=== PATIENT | female | born 1955 | race Caucasian/White ===

== ENCOUNTER 2018-02-23 12:56 | Emergency (ER) | payer SELFPAY ==
[~2018-02-23] VITALS: Ht 167.6 cm; Wt 74.8 kg
--- OUTSIDE RECORDS SUMMARY | 2018-02-23 13:00 | XMS REPORT | Summary of Care ---
Author Author [facility] Organization [facility] Address Unknown Phone Unavailable Encounter HQ Radha(SAMIR) [id number] Date(s): 01/16/16 - 01/16/16 [facility] [address] [place] [address]- Discharge Diagnosis: Lower abdominal pain, unspecified Discharge Disposition: Home or Self Care Attending Physician: Juan Rebolledo MD Vital Signs 1 2 3 Most recent to oldest [Reference Range]: 167.64 cm (01/16/16 12:04 PM) Height 97.6 DegF (01/16/16 5:34 PM) 98.1 DegF (01/16/16 12:04 PM) Temperature Oral [96.4-99.1 DegF] 139/81 mmHg (01/16/16 5:34 PM) 148/70 mmHg *HI* (01/16/16 4:51 PM) 128/74 mmHg (01/16/16 3:17 PM) Blood Pressure [90-140/60-90 mmHg] 18 BRMIN (01/16/16 3:17 PM) 18 BRMIN (01/16/16 12:04 PM) Respiratory Rate [14-20 BRMIN] 60 bpm (01/16/16 5:34 PM) 58 bpm *LOW* (01/16/16 4:51 PM) 61 bpm (01/16/16 3:17 PM) Peripheral Pulse Rate [60-100 bpm] 71.818 kg (01/16/16 12:04 PM) Weight 25.56 m2 (01/16/16 12:04 PM) Body Mass Index Problem List Condition Effective Dates Status Health Status Informant Aortic Active aneurysm(Confirmed) AAA repair(Probable 09/16/10 Active Diagnosis) Atrial Active fibrillation(Confirm ed) Chest Active pain(Confirmed) Current Active smoker(Confirmed) HTN - Active Hypertension(Confirm ed) Hypertension(Confirm Resolved ed) Hypoxia( ) 09/16/10 Active Kidney Resolved stones(Confirmed) Pain(Confirmed) Active Pain following 09/16/10 Active surgery, acute( ) Pneumothorax(Confirm 09/16/10 Active ed) Pulmonary 09/22/10 Active edema(Confirmed) SOB (shortness of 09/16/10 Active breath)( ) Allergies, Adverse Reactions, Alerts Substance Reaction Severity Status NKDA Active Medications aspirin 324 mg, Route: CHEW, Drug form: CHEWTAB, ONCE, Dosing Weight 71.818, kg, Priorit y: STAT, Start date: 01/16/16 15:34:00 CDT, Stop date: 01/16/16 15:34:00 CDT Start Date: 01/16/16 Stop Date: 01/16/16 Status: Completed morphine Sulfate 4 mg, 2 mL, Route: IVP, Drug form: INJ, ONCE, Dosing Weight 71.818, kg, Priority : STAT, Start date: 01/16/16 16:12:00 CDT, Stop date: 01/16/16 16:12:00 CDT Notes: (Same as:MORPhine Sulfate) Start Date: 01/16/16 Stop Date: 01/16/16 Status: Completed morphine Sulfate 4 mg, Route: IVP, ONCE, Dosing Weight 71.818, kg, Priority: STAT, Start date: 12:28:00 CDT, Stop date: 01/16/16 12:28:00 CDT Start Date: 01/16/16 Stop Date: 01/16/16 Status: Completed Motrin 600 mg oral tablet 600 mg=1 tab, PO, Q6H, PRN Pain, take with food, # 30 tab, 0 Refill(s) Start Date: 01/16/16 Stop Date: 01/25/16 Status: Ordered [place] 10/325 oral tablet 1 tab, Route: PO, Drug Form: TAB, Dosing Weight 71.818, kg, ONCE, STAT, Start da te: 01/16/16 13:54:00 CDT, Stop date: 01/16/16 13:54:00 CDT Notes: Do not exceed 4gm/day of acetaminophen. (Same as: [place] 325/10) Start Date: 01/16/16 Stop Date: 01/16/16 Status: Completed [place] 10/325 oral tablet 1 tab, PO, Q6H, PRN for pain, X 3 day, # 11 tab, 0 Refill(s) Start Date: 01/16/16 Stop Date: 01/19/16 Status: Ordered NS (Bolus) IV 1,000 mL, 1,000 ml/hr, Infuse Over: 1 hr, Route: IV, ONCE, Priority: STAT, Rishiin g Weight 71.818 kg, Start date: 01/16/16 12:27:00 CDT, Duration: 1 doses or time s, Stop date: 01/16/16 12:27:00 CDT Start Date: 01/16/16 Stop Date: 01/16/16 Status: Completed Reglan 10 mg oral tablet 10 mg=1 tab, PO, QID, X 5 day, # 20 tab, 0 Refill(s) Start Date: 01/16/16 Stop Date: 01/21/16 Status: Ordered Tylenol with Codeine #3 oral tablet 1 tab, PO, Q6H, PRN Pain, X 3 day, # 11 tab, 0 Refill(s) Start Date: 01/16/16 Stop Date: 01/16/16 Status: Discontinued Zofran 4 mg, 2 mL, Route: IVP, Drug form: INJ, ONCE, Dosing Weight 71.818, kg, Priority : STAT, Start date: 01/16/16 16:12:00 CDT, Stop date: 01/16/16 16:12:00 CDT Notes: (Same as: Zofran) MEDICATION WASTE Product Size: 4 mgProduct Was zahida: ___ mg Start Date: 01/16/16 Stop Date: 01/16/16 Status: Completed Zofran 4 mg, Route: IVP, Drug form: INJ, ONCE, Dosing Weight 71.818, kg, Priority: STAT , Start date: 01/16/16 12:28:00 CDT, Stop date: 01/16/16 12:28:00 CDT Start Date: 01/16/16 Stop Date: 01/16/16 Status: Completed Results ELECTROLYTES Most recent to 1 2 oldest [Reference Range]: Sodium Lvl [135-145 137 mEq/L mEq/L] (01/16/16 1:02 PM) Potassium Lvl 3.3 mEq/L [3.5-5.1 mEq/L] *LOW* (01/16/16 1:02 PM) Chloride Lvl [95-109 99 mEq/L mEq/L] (01/16/16 1:02 PM) CO2 [24-32 mEq/L] 32 mEq/L (01/16/16 1:02 PM) AGAP [10.0-20.0 9.3 mEq/L mEq/L] *LOW* (01/16/16 1:02 PM) CHEM PANEL Most recent to 1 2 oldest [Reference Range]: Creatinine Lvl 0.68 mg/dL [0.50-1.40 mg/dL] (01/16/16 1:02 PM) eGFR 97 mL/min/1.73m2 1 *NA* (01/16/16 1:02 PM) BUN [7-22 mg/dL] 9 mg/dL (01/16/16 1:02 PM) B/C Ratio [6-25] 13 (01/16/16 1:02 PM) Glucose Lvl [70-99 97 mg/dL mg/dL] (01/16/16 1:02 PM) Total Protein 6.5 g/dL [6.4-8.4 g/dL] (01/16/16 1:02 PM) Albumin Lvl [3.5-5.0 3.6 g/dL g/dL] (01/16/16 1:02 PM) Globulin [2.7-4.2 2.9 g/dL g/dL] (01/16/16 1:02 PM) A/G Ratio [0.7-1.6] 1.2 (01/16/16 1:02 PM) Calcium Lvl 9.0 mg/dL [8.5-10.5 mg/dL] (01/16/16 1:02 PM) ALT [0-65 unit/L] 22 unit/L (01/16/16 1:02 PM) AST [0-37 unit/L] 11 unit/L (01/16/16 1:02 PM) Alk Phos [39-136 65 unit/L unit/L] (01/16/16 1:02 PM) Bili Total [0.2-1.3 0.2 mg/dL mg/dL] (01/16/16 1:02 PM) Lactic Acid Lvl 1.4 mMol/L [0.5-2.2 mMol/L] (01/16/16 1:02 PM) 1Result Comment: The eGFR is calculated using the CKD-EPI formula. In most young, healthy individuals the eGFR will be >90 mL/min/1.73m2. The eGFR declines with age. An eGFR of 60-89 may be normal in some populations, particularly the elderly, for whom the CKD-EPI formula has not been extensively validated. Use of the eGFR is not recommended in the following populations: Individuals with unstable creatinine concentrations, including patients and those with serious co-morbid conditions. Patients with extremes in muscle mass or diet. The data above are obtained from the National Kidney Disease Education Program ( NKDEP) which additionally recommends that when the eGFR is used in patients with extremes of body mass index for purposes of drug dosing, the eGFR should be mul tiplied by the estimated BMI. CARDIAC ENZYMES Most recent to 1 2 oldest [Reference Range]: Troponin-I <0.02 ng/mL <0.02 ng/mL [0.00-0.40 ng/mL] (01/16/16 4:48 PM) (01/16/16 1:02 PM) URINE AND STOOL Most recent to 1 2 oldest [Reference Range]: UA Turbidity [Clear] Clear Slight (01/16/16 2:25 PM) *ABN* (01/16/16 1:02 PM) UA Color Colorless *NA* (01/16/16 2:25 PM) UA Color [Yellow] Yellow *NA* (01/16/16 1:02 PM) UA pH [5.0-8.0] 6.0 5.0 (01/16/16 2:25 PM) (01/16/16 1:02 PM) UA Spec Grav 1.001 1.021 [<=1.030] (01/16/16 2:25 PM) (01/16/16 1:02 PM) UA Glucose [Negative Negative mg/dL Negative mg/dL mg/dL] *NA* *NA* (01/16/16 2:25 PM) (01/16/16 1:02 PM) UA Blood [Negative] Negative Negative (01/16/16 2:25 PM) (01/16/16 1:02 PM) UA Ketones [Negative Negative mg/dL Negative mg/dL mg/dL] *NA* *NA* (01/16/16 2:25 PM) (01/16/16 1:02 PM) UA Protein [Negative Negative mg/dL Negative mg/dL mg/dL] (01/16/16 2:25 PM) (01/16/16 1:02 PM) UA Urobilinogen <=1.0 mg/dL <=1.0 mg/dL [0.1-1.0 mg/dL] *NA* *NA* (01/16/16 2:25 PM) (01/16/16 1:02 PM) UA Bili [Negative] Negative Negative *NA* *NA* (01/16/16 2:25 PM) (01/16/16 1:02 PM) UA Leuk Est Negative Trace [Negative] (01/16/16 2:25 PM) *ABN* (01/16/16 1:02 PM) UA Nitrite Negative Negative [Negative] (01/16/16 2:25 PM) (01/16/16 1:02 PM) UA WBC [0-5 /HPF] <1 /HPF 3 /HPF (01/16/16 2:25 PM) (01/16/16 1:02 PM) UA RBC [0-2 /HPF] 4 /HPF *HI* (01/16/16 1:02 PM) UA Bacteria [None Moderate /HPF Seen /HPF] *ABN* (01/16/16 1:02 PM) UA Sq Epi None Seen *NA* (01/16/16 2:25 PM) UA Sq Epi [Few /LPF] Many /LPF *ABN* (01/16/16 1:02 PM) UA Hyal Cast [0-2 23 /LPF /LPF] *HI* (01/16/16 1:02 PM) UA Mucus [None Seen Many /LPF /LPF] *ABN* (01/16/16 1:02 PM) HEMATOLOGY Most recent to 1 2 oldest [Reference Range]: WBC [3.7-10.4 K/CMM] 8.3 K/CMM (01/16/16 1:02 PM) RBC [4.20-5.40 4.16 M/CMM M/CMM] *LOW* (01/16/16 1:02 PM) Hgb [12.0-16.0 g/dL] 12.6 g/dL (01/16/16 1:02 PM) Hct [36.0-48.0 %] 38.0 % (01/16/16 1:02 PM) MCV [80.0-98.0 fL] 91.4 fL (01/16/16 1:02 PM) MCH [27.0-31.0 pg] 30.4 pg (01/16/16 1:02 PM) MCHC [32.0-36.0 33.3 g/dL g/dL] (01/16/16 1:02 PM) RDW [11.5-14.5 %] 13.1 % (01/16/16 1:02 PM) Platelet [133-450 209 K/CMM K/CMM] (01/16/16 1:02 PM) MPV [7.4-10.4 fL] 9.4 fL (01/16/16 1:02 PM) Segs [45.0-75.0 %] 67.3 % (01/16/16 1:02 PM) Lymphocytes 24.8 % [20.0-40.0 %] (01/16/16 1:02 PM) Monocytes [2.0-12.0 5.3 % %] (01/16/16 1:02 PM) Eosinophils [0.0-4.0 2.2 % %] (01/16/16 1:02 PM) Basophils [0.0-1.0 0.4 % %] (01/16/16 1:02 PM) Segs-Bands # 5.6 K/CMM [1.5-8.1 K/CMM] (01/16/16 1:02 PM) Lymphocytes # 2.1 K/CMM [1.0-5.5 K/CMM] (01/16/16 1:02 PM) Monocytes # [0.0-0.8 0.4 K/CMM K/CMM] (01/16/16 1:02 PM) Eosinophils # 0.2 K/CMM [0.0-0.5 K/CMM] (01/16/16 1:02 PM) PT [12.0-14.7 12.9 seconds seconds] (01/16/16 2:25 PM) INR [0.85-1.17] 0.94 (01/16/16 2:25 PM) PTT [22.9-35.8 20.6 seconds seconds] *LOW* (01/16/16 2:25 PM) Immunizations No data available for this section Procedures Procedure Date Related Diagnosis Body Site Aortic aneurysm repair Discectomy1 Excision of rib Hysterectomy 1lumbar Social History Social History Type Response Smoking Status Current every day smoker; Previous treatment: None; Ready to change: No; Concerns about tobacco use in household: No; Exposure to Tobacco Smoke None; Cigarette Smoking Last 365 Days Yes; Reg Smoking Cessation Counseling No Assessment and Plan Extracted from: Title: Cardiology Consult note Author: Tadeo Rooney MD Date: 01/16/16 Impression and Plan Atypical chest pain Sinus bradycardia Abnormal ekg Abdominal pain Plan: Check one troponin. If negative, she can be discharged. I think there is a component of pain seeking. She asked who will be giving me my pain meds several times. She wants the ER physician to give her pain meds through Tuesday. After talking to her pcp, it appears she has a history of chronic pain. She can follow up with Dr Flores early next week. If the chest pain persists, she is urged to come back to the ER. Please call me with any questions.
--- OUTSIDE RECORDS SUMMARY | 2018-02-23 13:00 | XMS REPORT ---
Author Author [facility] Address Unknown Phone Unavailable Care Team Providers Care Tailman Name Role Phone PEPE JOHNSON Unavailable Unavailable Problems This patient has no known problems. Allergies, Adverse Reactions, Alerts This patient has no known allergies or adverse reactions. Medications This patient has no known medications. Results Test Description Test Time Test Comments Text Results Atomic Results Result Comments CTA CHEST [address] [address] Patient Name: THAI SCANLON MR #: [id number] : 1955 Age/Sex: 61/F Req #: [id number] Adm Physician: Ordered by: PEPE JOHNSON MD Report #: [id number] Location: CT Room/Bed: Procedure: [id number] CT/CTA CHEST Exam Date: 04/07/17 Exam Time: 1455 REPORT STATUS: Signed EXAM: CTA OF THE THORACIC AORTA INDICATION: COMPARISON: None. TECHNIQUE: Multi-detector CT technology was employed. CTA Gated axial imaging of the chest was performed after the administration of IV contrast. IV CONTRAST: 100 mL of Isovue-370 ORAL CONTRAST: None COMPLICATIONS: None RADIATION DOSE: Total DLP: 818.0 mGy*cm Estimated effective dose: (DLP x 0.015 x size factor) mSv CTDIvol has been reviewed. It is below the limits set by the Radiation Protocol Committee (RPC). For optimization of anatomic evaluation, multiplanar reconstruction, maximum intensity projections, and advanced 3-D off-line postprocessing were performed on a dedicated stand-alone workstation under the direct supervision of the interpreting physician. FINDINGS: Potential study limitations: None. LINES/ TUBES: None. VASCULAR WITH ADVANCED 3-D OFF-LINE POSTPROCESSING: Aortic valve morphology is trileaflet and contains no calcifications. 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 Status post replacement of the ascending aorta with surgical graft. The graft appears intact. The remaining thoracic aorta is normal in course, caliber, and contour. There is no acute aortic pathology, such as dissection, intramural hematoma, or contained rupture. Aortic plaques: None. The arch vessel branching pattern is conventional. All of the arch branch vessels appear widely patent in their proximal portions. Application Development Liaison dimensions of the thoracic aorta are as follows: 1.7 x 2.6 cm at the aortic annulus 4.3 x 3.9 cm at the sinuses of Valsalva (the sinotubular junction is preserved) 3.2 cm at the mid ascending aorta 3.2 cm at the distal ascending aorta 2.8 cm at the mid transverse arch 2.6 cm at the proximal descending thoracic aorta 2.5 cm at the diaphragmatic hiatus. LUNGS AND AIRWAYS: Lungs are clear. Airways are patent. PLEURA: The pleural spaces are clear.. HEART AND MEDIASTINUM: The thyroid gland is normal. Few nonspecific subcentimeter mediastinal lymph nodes. The main pulmonary artery is normal in size. The cardiac chambers demonstrate normal atrioventricular and ventriculoarterial concordance, and systemic and pulmonary venous return. The left region is mildly prominent. The remaining heart appear within normal limits. The coronary arteries have normal origins and courses. There are no distinct coronary calcifications identified, though this study was not optimized for coronary artery evaluation. There is no pericardial effusion. LIMITED ABDOMEN: Mild thickening of the left adrenal gland without discrete nodules. BONES: Median sternotomy with intact wires. Posttraumatic deformity of the posterior left 10th and 11th ribs. IMPRESSION: Ectasia of the aortic root at the sinus of Valsalva (4.3 x 3.9 cm). Status post replacement of the ascending aorta with intact surgical graft. Normal remaining thoracic aorta. No acute thoracic aorta pathology. Signed by: Dr. Margo Sepulveda M.D. on 04/07/2017 6:34 PM Dictated By: MARGO SEPULVEDA MD 33 Transcribed By: CLOTILDE on 04/07/171833 COPY TO: PEPE JOHNSON MD
--- OUTSIDE RECORDS SUMMARY | 2018-02-23 13:00 | XMS REPORT | Summary of Care ---
Author Organization Unknown Address Unknown Phone Unavailable Encounter HQ Radha(SAMIR) [id number] Date(s): 01/18/14 - 01/18/14 [facility] [address] [address] [address] - [facility] Discharge Diagnosis: Renal stones Discharge Disposition: Home Physician Attending: Siddhartha Crowe MD Reason for Visit ABD PAIN Vital Signs Most recent to 1 2 oldest [Reference Range]: Height 167.64 cm (01/18/14 2:54 PM) Temperature Oral 98.8 DegF 98.6 DegF [96.4-99.1 DegF] (01/18/14 8:07 PM) (01/18/14 2:54 PM) Systolic Blood 140 mmHg 129 mmHg Pressure [90-140 (01/18/14 8:07 PM) (01/18/14 2:54 PM) mmHg] Diastolic Blood 75 mmHg 74 mmHg Pressure [60-90 (01/18/14 8:07 PM) (01/18/14 2:54 PM) mmHg] Respiratory Rate 18 BRMIN 18 BRMIN [14-20 BRMIN] (01/18/14 8:07 PM) (01/18/14 2:54 PM) Peripheral Pulse 63 bpm 80 bpm Rate [60-100 bpm] (01/18/14 8:07 PM) (01/18/14 2:54 PM) Weight 83.182 kg (01/18/14 2:54 PM) Body Mass Index 29.6 m2 (01/18/14 2:54 PM) Problem List Condition Effective Dates Status Health Status Informant Aortic Active aneurysm(Confirmed) AAA repair(Probable 09/16/10 Active Diagnosis) Atrial Active fibrillation(Confirm ed) Chest Active pain(Confirmed) Current Active smoker(Confirmed) HTN - Active Hypertension(Confirm ed) Hypoxia( ) 09/16/10 Active Pain(Confirmed) Active Pain following 09/16/10 Active surgery, acute( ) Pneumothorax(Confirm 09/16/10 Active ed) Pulmonary 09/22/10 Active edema(Confirmed) SOB (shortness of 09/16/10 Active breath)( ) Allergies, Adverse Reactions, Alerts Substance Reaction Severity Status NKDA Active Medications Dilaudid 0.5 mg, Route: IVP, ONCE, Dosing Weight 83.182, kg, Priority: STAT, Start date: 01/18/14 17:15:00, Stop date: 01/18/14 17:15:00 Start Date: 01/18/14 Stop Date: 01/18/14 Status: Completed Dilaudid 0.5 mg, Route: IVP, ONCE, Dosing Weight 83.182, kg, Priority: STAT, Start date: 01/18/14 18:14:00, Stop date: 01/18/14 18:14:00 Start Date: 01/18/14 Stop Date: 01/18/14 Status: Completed Flexeril 10 mg oral tablet 10 mg=1 tab, PO, TID, for spasm, # 30 tab, 0 Refill(s) Start Date: 01/18/14 Status: Ordered Flomax 0.4 mg oral capsule =1 tab, PO, Daily, # 7 tab, 0 Refill(s) Start Date: 01/18/14 Stop Date: 01/25/14 Status: Ordered ketorolac 30 mg, Route: IVP, Drug form: INJ, ONCE, Dosing Weight 83.182, kg, Priority: STA T, Start date: 01/18/14 18:14:00, Stop date: 01/18/14 18:14:00 Start Date: 01/18/14 Stop Date: 01/18/14 Status: Completed [place] 7.5/325 oral tablet 1-2 tab, PO, Q4-6H, Pain, # 15 tab, 0 Refill(s) Start Date: 01/18/14 Stop Date: 01/23/14 Status: Ordered Sodium Chloride 0.9% (Bolus) IV 1,000 mL, 1,000 ml/hr, Infuse Over: 1 hr, Route: IV, ONCE, Priority: STAT, Dosin g Weight 83.182 kg, Start date: 01/18/14 17:15:00, Duration: 1 doses or times, S top date: 01/18/14 17:15:00 Start Date: 01/18/14 Stop Date: 01/18/14 Status: Completed Results ELECTROLYTES Most recent to 1 oldest [Reference Range]: Sodium Lvl [135-145 136 mEq/L mEq/L] (01/18/14 5:35 PM) Potassium Lvl 3.6 mEq/L [3.5-5.1 mEq/L] (01/18/14 5:35 PM) Chloride Lvl [95-109 100 mEq/L mEq/L] (01/18/14 5:35 PM) CO2 [24-32 mEq/L] 29 mEq/L (01/18/14 5:35 PM) AGAP [10.0-20.0 10.6 mEq/L mEq/L] (01/18/14 5:35 PM) CHEM PANEL Most recent to 1 oldest [Reference Range]: Creatinine Lvl 0.8 mg/dL [0.5-1.4 mg/dL] (01/18/14 5:35 PM) eGFR 83 mL/min/1.73m2 1 *NA* (01/18/14 5:35 PM) BUN [7-22 mg/dL] 15 mg/dL (01/18/14 5:35 PM) B/C Ratio [6-25] 19 (01/18/14 5:35 PM) Glucose Lvl [70-99 102 mg/dL 2 mg/dL] *HI* (01/18/14 5:35 PM) Total Protein 7.2 g/dL [6.4-8.4 g/dL] (01/18/14 5:35 PM) Albumin Lvl [3.5-5.0 3.9 g/dL g/dL] (01/18/14 5:35 PM) Globulin [2.0-4.0 3.3 g/dL g/dL] (01/18/14 5:35 PM) A/G Ratio [0.7-1.6] 1.2 (01/18/14 5:35 PM) Calcium Lvl 8.9 mg/dL [8.5-10.5 mg/dL] (01/18/14 5:35 PM) ALT [0-65 unit/L] 26 unit/L (01/18/14 5:35 PM) AST [0-37 unit/L] 15 unit/L (01/18/14 5:35 PM) Alk Phos [39-136 80 unit/L unit/L] (01/18/14 5:35 PM) Bili Total [0.2-1.3 0.2 mg/dL mg/dL] (01/18/14 5:35 PM) Lactic Acid Lvl 1.7 mMol/L [0.5-2.2 mMol/L] (01/18/14 6:03 PM) 1Result Comment: The eGFR is calculated [...] be mul tiplied by the estimated BMI. 2Interpretive Data: Adult reference range values reflect the clinical guidelines of the [place] [employer]. URINE AND STOOL Most recent to 1 oldest [Reference Range]: UA Turbidity [Clear] Clear (01/18/14 6:00 PM) UA Color Ltyellow *NA* (01/18/14 6:00 PM) UA pH [5.0-8.0] 6.0 (01/18/14 6:00 PM) UA Spec Grav 1.006 [<=1.030] (01/18/14 6:00 PM) UA Glucose [Negative Negative mg/dL mg/dL] *NA* (01/18/14 6:00 PM) UA Blood [Negative] Negative (01/18/14 6:00 PM) UA Ketones [Negative Negative mg/dL mg/dL] *NA* (01/18/14 6:00 PM) UA Protein [Negative Negative mg/dL mg/dL] (01/18/14 6:00 PM) UA Urobilinogen <=1.0 mg/dL [0.1-1.0 mg/dL] *NA* (01/18/14 6:00 PM) UA Bili [Negative] Negative *NA* (01/18/14 6:00 PM) UA Leuk Est Negative [Negative] (01/18/14 6:00 PM) UA Nitrite Negative [Negative] (01/18/14 6:00 PM) UA WBC [0-5 /HPF] 1 /HPF (01/18/14 6:00 PM) UA RBC [0-2 /HPF] 1 /HPF (01/18/14 6:00 PM) UA Sq Epi [Few /LPF] Occasional /LPF *NA* (01/18/14 6:00 PM) HEMATOLOGY Most recent to 1 oldest [Reference Range]: WBC [3.7-10.4 K/CMM] 15.4 K/CMM *HI* (01/18/14 5:35 PM) RBC [4.20-5.40 4.18 M/CMM M/CMM] *LOW* (01/18/14 5:35 PM) Hgb [12.0-16.0 g/dL] 12.9 g/dL (01/18/14 5:35 PM) Hct [36.0-48.0 %] 38.9 % (01/18/14 5:35 PM) MCV [80.0-98.0 fL] 93.1 fL (01/18/14 5:35 PM) MCH [27.0-31.0 pg] 31.0 pg (01/18/14 5:35 PM) MCHC [32.0-36.0 33.3 g/dL g/dL] (01/18/14 5:35 PM) RDW [11.5-14.5 %] 12.8 % (01/18/14 5:35 PM) Platelet [133-450 226 K/CMM K/CMM] (01/18/14 5:35 PM) MPV [7.4-10.4 fL] 9.9 fL (01/18/14 5:35 PM) Segs [45.0-75.0 %] 81.2 % *HI* (01/18/14 5:35 PM) Lymphocytes 13.5 % [20.0-40.0 %] *LOW* (01/18/14 5:35 PM) Monocytes [2.0-12.0 5.0 % %] (01/18/14 5:35 PM) Basophils [0.0-1.0 0.3 % %] (01/18/14 5:35 PM) Segs-Bands # 12.5 K/CMM [1.5-8.1 K/CMM] *HI* (01/18/14 5:35 PM) Lymphocytes # 2.1 K/CMM [1.0-5.5 K/CMM] (01/18/14 5:35 PM) Monocytes # [0.0-0.8 0.8 K/CMM K/CMM] (01/18/14 5:35 PM) PT [12.0-14.7 13.0 seconds seconds] (01/18/14 5:35 PM) INR [0.85-1.17] 0.98 3 (01/18/14 5:35 PM) PTT [22.9-35.8 31.2 seconds 4 seconds] (01/18/14 5:35 PM) 3Interpretive Data: RECOMMENDED RANGES FOR PROTIME INR: 2.0-3.0 for most medical and surgical thromboembolic states. 2.5-3.5 for artificial heart valves and recurrent embolism. INR SHOULD BE USED ONLY FOR PATIENTS ON STABLE ANTICOAGULANT THERAPY. 4Interpretive Data: Heparin Therapeutic Range: 57 - 92 Seconds Medications Administered During Your Visit No data available for this section Immunizations No data available for this section Social History Social History Type Response
--- OUTSIDE RECORDS SUMMARY | 2018-02-23 13:00 | XMS REPORT | Continuity of Care Document ---
Author Author [facility] Interface Address Unknown Phone Unavailable Problems Problem Status Onset Date Classification Date Reported Comments Source Discharge Diagnosis: Lower abdominal pain, unspecified 01/16/2016 01/19/2016 [facility] ABD PAIN Active 01/16/2016 [facility] Discharge Diagnosis: Renal stones 01/18/2014 01/21/2014 [facility] Pulmonary edema Active 09/22/2010 Problem 01/19/2016 [facility] AAA repair Active 09/16/2010 Problem 01/19/2016 [facility] Hypoxia Active 09/16/2010 Problem 01/19/2016 [facility] Pain following surgery, acute Active 09/16/2010 Problem 01/19/2016 [facility] Pneumothorax Active 09/16/2010 Problem 01/19/2016 [facility] SOB (<span ID="[id number] </span>) Active 09/16/2010 Problem 01/19/2016 [facility] AAA repair Active 09/16/2010 Problem 01/21/2014 [facility] Pain following surgery, acute Active 09/16/2010 Problem 01/21/2014 [facility] Pneumothorax Active 09/16/2010 Problem 01/21/2014 [facility] Aortic aneurysm Active Problem 01/19/2016 [facility] Atrial fibrillation Active Problem 01/19/2016 [facility] Chest pain Active Problem 01/19/2016 [facility] Current smoker Active Problem 01/19/2016 [facility] HTN - Hypertension Active Problem 01/19/2016 [facility] Hypertension Resolved Problem 01/19/2016 [facility] Kidney stones Resolved Problem 01/19/2016 [facility] Pain Active Problem 01/19/2016 [facility] Medications Medication Details Route Status Patient Instructions Ordering Provider Order Date Source Acetaminophen 325 MG / Hydrocodone Bitartrate 10 MG Oral Tablet [[place] 10/325] 1 tab, PO, Q6H, PRN for pain, X 3 day, # 11 tab, 0 Refill(s) Active 01/16/2016 [facility] Zofran 4 mg, 2 mL, Route: IVP, Drug form: INJ, ONCE, Dosing Weight 71.818, kg, Priority: STAT, Start date: 01/16/16 16:12:00 CDT, Stop date: 01/16/16 16:12:00 CDTNotes: (Same as: Zofran) MEDICATION WASTE Product Size: 4 mg Product Wasted: ___ mg Inactive 01/16/2016 [facility] Morphine 4 mg, 2 mL, Route: IVP, Drug form: INJ, ONCE, Dosing Weight 71.818, kg, Priority: STAT, Start date: 01/16/16 16:12:00 CDT, Stop date: 01/16/16 16:12:00 CDTNotes: (Same as:MORPhine Sulfate) Inactive 01/16/2016 [facility] Aspirin 324 mg, Route: CHEW, Drug form: CHEWTAB, ONCE, Dosing Weight 71.818, kg, Priority: STAT, Start date: 01/16/16 15:34:00 CDT, Stop date: 01/16/16 15:34:00 CDT Inactive 01/16/2016 [facility] Metoclopramide 10 MG Oral Tablet [Reglan] 10 mg=1 tab, PO, QID, X 5 day, # 20 tab, 0 Refill(s) Active 01/16/2016 [facility] Motrin 600 mg oral tablet 600 mg=1 tab, PO, Q6H, PRN Pain, take with food, # 30 tab, 0 Refill(s) Active 01/16/2016 [facility] Acetaminophen 300 MG / Codeine Phosphate 30 MG Oral Tablet [Tylenol with Codeine #3] 1 tab, PO, Q6H, PRN Pain, X 3 day, # 11 tab, 0 Refill(s) Inactive 01/16/2016 [facility] Acetaminophen 325 MG / Hydrocodone Bitartrate 10 MG Oral Tablet [[place] 10/325] 1 tab, Route: PO, Drug Form: TAB, Dosing Weight 71.818, kg, ONCE, STAT, Start date: 01/16/16 13:54:00 CDT, Stop date: 01/16/16 13:54:00 CDTNotes: Do not exceed 4gm/day of acetaminophen. (Same as: [place] 325/10) Inactive 01/16/2016 [facility] Zofran 4 mg, Route: IVP, Drug form: INJ, ONCE, Dosing Weight 71.818, kg, Priority: STAT, Start date: 01/16/16 12:28:00 CDT, Stop date: 01/16/16 12:28:00 CDT Inactive 01/16/2016 [facility] Morphine 4 mg, Route: IVP, ONCE, Dosing Weight 71.818, kg, Priority: STAT, Start date: 01/16/16 12:28:00 CDT, Stop date: 01/16/16 12:28:00 CDT Inactive 01/16/2016 [facility] Sodium Chloride 0.154 MEQ/ML Injectable Solution 1,000 mL, 1,000 ml/hr, Infuse Over: 1 hr, Route: IV, ONCE, Priority: STAT, Dosing Weight 71.818 kg, Start date: 01/16/16 12:27:00 CDT, Duration: 1 doses or times, Stop date: 01/16/16 12:27:00 CDT Inactive 01/16/2016 [facility] Cyclobenzaprine hydrochloride 10 MG Oral Tablet [Flexeril] 10 mg=1 tab, PO, TID, for spasm, # 30 tab, 0 Refill(s) Active 01/19/2014 [facility] Acetaminophen 325 MG / Hydrocodone Bitartrate 7.5 MG Oral Tablet [[place] 7.5/325] 1-2 tab, PO, Q4-6H, Pain, # 15 tab, 0 Refill(s) Active 01/18/2014 [facility] Tamsulosin hydrochloride 0.4 MG Oral Capsule [Flomax] =1 tab, PO, Daily, # 7 tab, 0 Refill(s) Active 01/18/2014 [facility] Ketorolac 30 mg, Route: IVP, Drug form: INJ, ONCE, Dosing Weight 83.182, kg, Priority: STAT, Start date: 01/18/14 18:14:00, Stop date: 01/18/14 18:14:00 Inactive 01/18/2014 [facility] Dilaudid 0.5 mg, Route: IVP, ONCE, Dosing Weight 83.182, kg, Priority: STAT, Start date: 01/18/14 18:14:00, Stop date: 01/18/14 18:14:00 Inactive 01/18/2014 [facility] Dilaudid 0.5 mg, Route: IVP, ONCE, Dosing Weight 83.182, kg, Priority: STAT, Start date: 01/18/14 17:15:00, Stop date: 01/18/14 17:15:00 Inactive 01/18/2014 [facility] Sodium Chloride 0.154 MEQ/ML Injectable Solution 1,000 mL, 1,000 ml/hr, Infuse Over: 1 hr, Route: IV, ONCE, Priority: STAT, Dosing Weight 83.182 kg, Start date: 01/18/14 17:15:00, Duration: 1 doses or times, Stop date: 01/18/14 17:15:00 Inactive 01/18/2014 [facility] Allergies, Adverse Reactions, Alerts Substance Category Reaction Severity Reaction type Status Date Reported Comments Source Immunizations Immunization Date Given Site Status Last Updated Comments Source Results Order Name Results Value Reference Range Date Interpretation Comments Source CARDIAC ENZYMES Troponin-I null 0.00 - 0.40 01/16/2016 [facility] HEMATOLOGY INR 0.94 0.85 - 1.17 01/16/2016 [facility] HEMATOLOGY PT 12.9 s 12.0 - 14.7 01/16/2016 [facility] HEMATOLOGY PTT 20.6 s 22.9 - 35.8 01/16/2016 [facility] URINE AND STOOL UA Color Colorless 01/16/2016 [facility] URINE AND STOOL UA Urobilinogen <=1.0 mg/dL 0.1 - 1.0 01/16/2016 [facility] URINE AND STOOL UA Leuk Est Negative (01/16/16 2:25 PM) Negative 01/16/2016 [facility] URINE AND STOOL UA WBC null 0 - 5 01/16/2016 [facility] URINE AND STOOL UA Sq Epi None Seen 01/16/2016 [facility] URINE AND STOOL UA Bili Negative *NA* (01/16/16 2:25 PM) Negative 01/16/2016 [facility] URINE AND STOOL UA Blood Negative (01/16/16 2:25 PM) Negative 01/16/2016 [facility] URINE AND STOOL UA Glucose Negative mg/dL Negative mg/dL 01/16/2016 [facility] URINE AND STOOL UA Ketones Negative mg/dL Negative mg/dL 01/16/2016 [facility] URINE AND STOOL UA Nitrite Negative (01/16/16 2:25 PM) Negative 01/16/2016 [facility] URINE AND STOOL UA Turbidity Clear (01/16/16 2:25 PM) Clear 01/16/2016 [facility] URINE AND STOOL UA Spec Grav 1.001 <=1.030 01/16/2016 [facility] URINE AND STOOL UA pH 6.0 5.0 - 8.0 01/16/2016 [facility] URINE AND STOOL UA Protein Negative mg/dL Negative mg/dL 01/16/2016 [facility] CARDIAC ENZYMES Troponin-I null 0.00 - 0.40 01/16/2016 [facility] CHEM PANEL Lactic Acid Lvl 1.4 mMol/L 0.5 - 2.2 01/16/2016 [facility] CHEM PANEL A/G Ratio 1.2 0.7 - 1.6 01/16/2016 [facility] CHEM PANEL Globulin 2.9 g/dL 2.7 - 4.2 01/16/2016 [facility] CHEM PANEL AGAP 9.3 meq/L 10.0 - 20.0 01/16/2016 [facility] CHEM PANEL B/C Ratio 13 6 - 25 01/16/2016 [facility] CHEM PANEL eGFR 97 mL/min/1.73m2 01/16/2016 Result Comment: The eGFR is calculated using the [...] from the National Kidney Disease Education Program (NKDEP) which additionally recommends that when the eGFR is used in patients with extremes of body mass index for purposes of drug dosing, the eGFR should be multiplied by the estimated BMI. [facility] CHEM PANEL AST 11 unit/L 0 - 37 01/16/2016 [facility] CHEM PANEL Alk Phos 65 unit/L 39 - 136 01/16/2016 [facility] CHEM PANEL Bili Total 0.2 mg/dL 0.2 - 1.3 01/16/2016 [facility] CHEM PANEL ALT 22 unit/L 0 - 65 01/16/2016 [facility] CHEM PANEL Total Protein 6.5 g/dL 6.4 - 8.4 01/16/2016 [facility] CHEM PANEL Albumin Lvl 3.6 g/dL 3.5 - 5.0 01/16/2016 [facility] CHEM PANEL Glucose Lvl 97 mg/dL 70 - 99 01/16/2016 [facility] CHEM PANEL BUN 9 mg/dL 7 - 22 01/16/2016 [facility] CHEM PANEL Potassium Lvl 3.3 meq/L 3.5 - 5.1 01/16/2016 [facility] CHEM PANEL Chloride Lvl 99 meq/L 95 - 109 01/16/2016 [facility] CHEM PANEL CO2 32 meq/L 24 - 32 01/16/2016 [facility] CHEM PANEL Creatinine Lvl 0.68 mg/dL 0.50 - 1.40 01/16/2016 [facility] CHEM PANEL Sodium Lvl 137 meq/L 135 - 145 01/16/2016 [facility] CHEM PANEL Calcium Lvl 9.0 mg/dL 8.5 - 10.5 01/16/2016 [facility] HEMATOLOGY Segs 67.3 % 45.0 - 75.0 01/16/2016 [facility] HEMATOLOGY Lymphocytes 24.8 % 20.0 - 40.0 01/16/2016 [facility] HEMATOLOGY Eosinophils 2.2 % 0.0 - 4.0 01/16/2016 [facility] HEMATOLOGY Basophils 0.4 % 0.0 - 1.0 01/16/2016 [facility] HEMATOLOGY Monocytes 5.3 % 2.0 - 12.0 01/16/2016 [facility] HEMATOLOGY Segs-Bands # 5.6 K/CMM 1.5 - 8.1 01/16/2016 [facility] HEMATOLOGY Eosinophils # 0.2 K/CMM 0.0 - 0.5 01/16/2016 [facility] HEMATOLOGY Lymphocytes # 2.1 K/CMM 1.0 - 5.5 01/16/2016 [facility] HEMATOLOGY Monocytes # 0.4 K/CMM 0.0 - 0.8 01/16/2016 [facility] HEMATOLOGY RBC 4.16 M/CMM 4.20 - 5.40 01/16/2016 [facility] HEMATOLOGY WBC 8.3 K/CMM 3.7 - 10.4 01/16/2016 [facility] HEMATOLOGY MPV 9.4 fL 7.4 - 10.4 01/16/2016 [facility] HEMATOLOGY RDW 13.1 % 11.5 - 14.5 01/16/2016 [facility] HEMATOLOGY Platelet 209 K/CMM 133 - 450 01/16/2016 [facility] HEMATOLOGY MCH 30.4 pg 27.0 - 31.0 01/16/2016 [facility] HEMATOLOGY MCHC 33.3 g/dL 32.0 - 36.0 01/16/2016 [facility] HEMATOLOGY Hct 38.0 % 36.0 - 48.0 01/16/2016 [facility] HEMATOLOGY MCV 91.4 fL 80.0 - 98.0 01/16/2016 [facility] HEMATOLOGY Hgb 12.6 g/dL 12.0 - 16.0 01/16/2016 [facility] URINE AND STOOL UA Leuk Est Trace *ABN* (01/16/16 1:02 PM) Negative 01/16/2016 [facility] URINE AND STOOL UA WBC 3 /HPF 0 - 5 01/16/2016 [facility] URINE AND STOOL UA Sq Epi Many /LPF Few /LPF 01/16/2016 [facility] URINE AND STOOL UA RBC 4 /HPF 0 - 2 01/16/2016 [facility] URINE AND STOOL UA Bacteria Moderate /HPF None Seen /HPF 01/16/2016 [facility] URINE AND STOOL UA Mucus Many /LPF None Seen /LPF 01/16/2016 [facility] URINE AND STOOL UA Hyal Cast 23 /LPF 0 - 2 01/16/2016 [facility] URINE AND STOOL UA Urobilinogen <=1.0 mg/dL 0.1 - 1.0 01/16/2016 [facility] URINE AND STOOL UA Protein Negative mg/dL Negative mg/dL 01/16/2016 [facility] URINE AND STOOL UA pH 5.0 5.0 - 8.0 01/16/2016 [facility] URINE AND STOOL UA Glucose Negative mg/dL Negative mg/dL 01/16/2016 [facility] URINE AND STOOL UA Spec Grav 1.021 <=1.030 01/16/2016 [facility] URINE AND STOOL UA Bili Negative *NA* (01/16/16 1:02 PM) Negative 01/16/2016 [facility] URINE AND STOOL UA Ketones Negative mg/dL Negative mg/dL 01/16/2016 [facility] URINE AND STOOL UA Nitrite Negative (01/16/16 1:02 PM) Negative 01/16/2016 [facility] URINE AND STOOL UA Blood Negative (01/16/16 1:02 PM) Negative 01/16/2016 [facility] URINE AND STOOL UA Color Yellow *NA* (01/16/16 1:02 PM) Yellow 01/16/2016 [facility] URINE AND STOOL UA Turbidity Slight *ABN* (01/16/16 1:02 PM) Clear 01/16/2016 [facility] Chest CTA Chest CTA EXAM: CTA chest HISTORY: Chest pain, history of a ascending aortic aneurysm COMPARISON: CT chest 10/27/2010 TECHNIQUE: Axial images of the aorta with sagittal and coronal reformats and 3-D volume rendered images. Routine axial images of the chest. IV contrast given. DLP: FINDINGS: The aortic root measures 4.6 cm AP and is stable. The ascending aorta measures 3.2 cm at the level of the right pulmonary artery and descending aorta 2.3 cm at the same level. The aortic arch measures 2.9 cm. Median sternotomy. No bulky adenopathy. Heart size normal. No pleural effusion. COPD. No pneumonia. Pulmonary venous hypertension. No lung nodule is seen. Old fractures left ribs. Stable adenomas in the adrenal glands. IMPRESSION: 1. No aneurysm of the ascending aorta. 2. COPD. [id number] 01/16/2016 - - Read by: Reece Pollack MD Dictated Date/time: 01/16/16 15:08 Electronically Signed by: Reece Pollack MD 01/16/16 15:25 FINAL REPORT [facility] 1view DX Chest 1view DX Portable chest: Median sternotomy wires are noted. The cardiac silhouette and pulmonary vasculature are within normal limits. The lungs and pleural spaces are clear. There are no acute osseous abnormalities.. There is no significant change compared to 10/27/2010. IMPRESSION: No acute radiographic abnormality in the chest. [id number] 01/16/2016 - - Read by: Etienne Kwan MD Dictated Date/time: 01/16/16 14:49 Electronically Signed by: Etienne Kwan MD 01/16/16 14:50 FINAL REPORT [facility] Renal Stone CT Renal Stone CT CT ABDOMEN PELVIS WITHOUT CONTRAST (RENAL STONE): HISTORY: TECHNIQUE: Multislice axial acquisition of the abdomen and pelvis targeted to the urinary tract was done without contrast. Sagittal and coronal reconstructions were also done. FINDINGS: There is a 2 mm calyceal stone in the upper pole of the right kidney, also demonstrated on the previous CT of 01/18/2014. There is no evidence of other urinary tract calculus or hydronephrosis. There has been resolution of mild right hydronephrosis since the prior exam. There is a 1.2 cm cyst in the lower pole of the left kidney, unchanged from the previous CT. There are no other significant renal abnormalities. The urinary bladder is unremarkable. The visible liver, spleen, gallbladder, pancreas and adrenal glands show no significant abnormalities. The gastrointestinal tract is unremarkable. The uterus is absent. There has been interval laminectomy at L4 and L5 the previous study. There are no acute osseous abnormalities. There is no other significant change from the previous exam. IMPRESSION: 1. No evidence of ureteral calculus or hydronephrosis. 2. Small calyceal stone in the upper pole of the right kidney. SL [id number] 01/16/2016 - - Read by: Etienne Kwan MD Dictated Date/time: 01/16/16 12:42 Electronically Signed by: Etienne Kwan MD 01/16/16 12:48 FINAL REPORT [facility] CHEM PANEL Lactic Acid Lvl 1.7 mMol/L 0.5 - 2.2 01/18/2014 [facility] URINE AND STOOL UA Color Ltyellow 01/18/2014 [facility] URINE AND STOOL UA Urobilinogen <=1.0 mg/dL 0.1 - 1.0 01/18/2014 [facility] URINE AND STOOL UA Glucose Negative mg/dL Negative mg/dL 01/18/2014 [facility] URINE AND STOOL UA Protein Negative mg/dL Negative mg/dL 01/18/2014 [facility] URINE AND STOOL UA Bili Negative *NA* (01/18/14 6:00 PM) Negative 01/18/2014 [facility] URINE AND STOOL UA Spec Grav 1.006 <=1.030 01/18/2014 [facility] URINE AND STOOL UA Ketones Negative mg/dL Negative mg/dL 01/18/2014 [facility] URINE AND STOOL UA Turbidity Clear (01/18/14 6:00 PM) Clear 01/18/2014 [facility] URINE AND STOOL UA Blood Negative (01/18/14 6:00 PM) Negative 01/18/2014 [facility] URINE AND STOOL UA Nitrite Negative (01/18/14 6:00 PM) Negative 01/18/2014 [facility] URINE AND STOOL UA Sq Epi Occasional /LPF Few /LPF 01/18/2014 [facility] URINE AND STOOL UA WBC 1 /HPF 0 - 5 01/18/2014 [facility] URINE AND STOOL UA RBC 1 /HPF 0 - 2 01/18/2014 [facility] URINE AND STOOL UA pH 6.0 5.0 - 8.0 01/18/2014 [facility] URINE AND STOOL UA Leuk Est Negative (01/18/14 6:00 PM) Negative 01/18/2014 [facility] CHEM PANEL Globulin 3.3 g/dL 2.0 - 4.0 01/18/2014 [facility] CHEM PANEL A/G Ratio 1.2 0.7 - 1.6 01/18/2014 [facility] CHEM PANEL AGAP 10.6 meq/L 10.0 - 20.0 01/18/2014 [facility] CHEM PANEL B/C Ratio 19 6 - 25 01/18/2014 [facility] CHEM PANEL eGFR 83 mL/min/1.73m2 01/18/2014 1Result Comment: The eGFR is calculated using [...] from the National Kidney Disease Education Program (NKDEP) which additionally recommends that when the eGFR is used in patients with extremes of body mass index for purposes of drug dosing, the eGFR should be multiplied by the estimated BMI. [facility] CHEM PANEL Albumin Lvl 3.9 g/dL 3.5 - 5.0 01/18/2014 [facility] CHEM PANEL AST 15 unit/L 0 - 37 01/18/2014 [facility] CHEM PANEL ALT 26 unit/L 0 - 65 01/18/2014 [facility] CHEM PANEL Bili Total 0.2 mg/dL 0.2 - 1.3 01/18/2014 [facility] CHEM PANEL Alk Phos 80 unit/L 39 - 136 01/18/2014 [facility] CHEM PANEL BUN 15 mg/dL 7 - 22 01/18/2014 [facility] CHEM PANEL Glucose Lvl 102 mg/dL 70 - 99 01/18/2014 2Interpretive Data: Adult reference range values reflect the clinical guidelines of the [place] [employer]. [facility] CHEM PANEL Sodium Lvl 136 meq/L 135 - 145 01/18/2014 [facility] CHEM PANEL Creatinine Lvl 0.8 mg/dL 0.5 - 1.4 01/18/2014 [facility] CHEM PANEL Chloride Lvl 100 meq/L 95 - 109 01/18/2014 [facility] CHEM PANEL Potassium Lvl 3.6 meq/L 3.5 - 5.1 01/18/2014 [facility] CHEM PANEL Calcium Lvl 8.9 mg/dL 8.5 - 10.5 01/18/2014 [facility] CHEM PANEL CO2 29 meq/L 24 - 32 01/18/2014 [facility] CHEM PANEL Total Protein 7.2 g/dL 6.4 - 8.4 01/18/2014 [facility] Monocytes # 0.8 K/CMM 0.0 - 0.8 01/18/2014 [facility] HEMATOLOGY Segs-Bands # 12.5 K/CMM 1.5 - 8.1 01/18/2014 [facility] [place] Basophils 0.3 % 0.0 - 1.0 01/18/2014 [facility] HEMATOLOGY Lymphocytes # 2.1 K/CMM 1.0 - 5.5 01/18/2014 [facility] Monocytes 5.0 % 2.0 - 12.0 01/18/2014 [facility] [place] Lymphocytes 13.5 % 20.0 - 40.0 01/18/2014 [facility] [place] Segs 81.2 % 45.0 - 75.0 01/18/2014 [facility] INR 0.98 0.85 - 1.17 01/18/2014 3Interpretive Data: RECOMMENDED RANGES FOR PROTIME INR: 2.0-3.0 for most medical and surgical thromboembolic states. 2.5-3.5 for artificial heart valves and recurrent embolism. INR SHOULD BE USED ONLY FOR PATIENTS ON STABLE ANTICOAGULANT THERAPY. [facility] PTT 31.2 s 22.9 - 35.8 01/18/2014 4Interpretive Data: Heparin Therapeutic Range: 57 - 92 Seconds [facility] PT 13.0 s 12.0 - 14.7 01/18/2014 [facility] Hgb 12.9 g/dL 12.0 - 16.0 01/18/2014 [facility] MPV 9.9 fL 7.4 - 10.4 01/18/2014 [facility] [place] Hct 38.9 % 36.0 - 48.0 01/18/2014 [facility] MCH 31.0 pg 27.0 - 31.0 01/18/2014 [facility] [place] MCV 93.1 fL 80.0 - 98.0 01/18/2014 [facility] MCHC 33.3 g/dL 32.0 - 36.0 01/18/2014 [facility] WBC 15.4 K/CMM 3.7 - 10.4 01/18/2014 [facility] HEMATOLOGY RBC 4.18 M/CMM 4.20 - 5.40 01/18/2014 [facility] HEMATOLOGY Platelet 226 K/CMM 133 - 450 01/18/2014 [facility] HEMATOLOGY RDW 12.8 % 11.5 - 14.5 01/18/2014 [facility] Vital Signs Vital Sign Value Date Comments Source Systolic (mm Hg) 139 01/16/2016 [facility] Diastolic (mm Hg) 81 01/16/2016 [facility] Heart Rate 60 01/16/2016 [facility] Temperature Oral (F) 97.6 F 01/16/2016 [facility] Systolic (mm Hg) 148 01/16/2016 [facility] Diastolic (mm Hg) 70 01/16/2016 [facility] Heart Rate 58 01/16/2016 [facility] Respitory Rate 18 01/16/2016 [facility] Systolic (mm Hg) 128 01/16/2016 [facility] Diastolic (mm Hg) 74 01/16/2016 [facility] Heart Rate 61 01/16/2016 [facility] BMI Calculated 25.56 01/16/2016 [facility] Height 167.64 cm 01/16/2016 [facility] Weight 71.818 01/16/2016 [facility] Respitory Rate 18 01/16/2016 [facility] Temperature Oral (F) 98.1 F 01/16/2016 [facility] Respitory Rate 18 01/19/2014 [facility] Diastolic (mm Hg) 75 01/19/2014 [facility] Systolic (mm Hg) 140 01/19/2014 [facility] Temperature Oral (F) 98.8 F 01/19/2014 [facility] Heart Rate 63 01/19/2014 [facility] Weight 83.182 01/18/2014 [facility] Height 167.64 cm 01/18/2014 [facility] BMI Calculated 29.6 01/18/2014 [facility] Temperature Oral (F) 98.6 F 01/18/2014 [facility] Respitory Rate 18 01/18/2014 [facility] Heart Rate 80 01/18/2014 [facility] Diastolic (mm Hg) 74 01/18/2014 [facility] Systolic (mm Hg) 129 01/18/2014 [facility] Encounters Location Location Details Encounter Type Encounter Number Reason For Visit Attending Provider ADM Date DC Date Status Source [facility] [id number] Siddhartha Crowe 01/18/2014 01/19/2014 [facility] [id number] Juan Rebolledo 01/16/2016 01/16/2016 [facility] Procedures Procedure Code Date Perfomer Comments Source Aortic aneurysm repair [id number] [facility] Discectomy<sup>1</sup> [id number] [facility] Excision of rib [id number] [facility] Hysterectomy [id number] [facility]
[2018-02-23] MEDS ORDERED: ASPIRIN 81 MG CHEW TAB PO ONE (13:15)
[2018-02-23] MEDS ORDERED: NITROGLYCERIN 2% OINT 1 GM PKT TOP ONE (13:15)
[2018-02-23 13:36] LABS: BASOPHILS % 0.4 % (0.0-1.0); EOSINOPHILS # (AUTO) 0.4 (0.0-0.4); EOSINOPHILS % 5.4 % (0.0-6.0); HEMATOCRIT 40.9 % (34.2-44.1); HEMOGLOBIN 13.7 g/dL (12.0-16.0); LYMPHOCYTES # (AUTO) 1.7 (1.0-3.2); LYMPHOCYTES % 25.6 % (18.0-39.1); MEAN CORPUSCULAR HEMOGLOBIN 32.4 pg (28-32); MEAN CORPUSCULAR HGB CONC 33.5 g/dL (31-35); MEAN CORPUSCULAR VOLUME 96.7 fL (81-99); MONOCYTES # (AUTO) 0.5 (0.2-0.8); NEUTROPHILS # (AUTO) 4.1 (2.1-6.9); NEUTROPHILS % 61.3 % (38.7-80.0); PLATELET COUNT 246 x10e3/uL (140-360); RED BLOOD COUNT 4.23 x10e6/uL (3.6-5.1); RED CELL DISTRIBUTION WIDTH 12.2 % (11.7-14.4)
[2018-02-23 13:53] LABS: CLARITY,URINE SL CLOUDY (CLEAR); COLOR,URINE YELLOW (YELLOW); INR 0.86; PARTIAL THROMBOPLASTIN TIME 25.4 seconds (23.8-35.5); PROTHROMBIN TIME 12.5 seconds (11.9-14.5)
[2018-02-23 13:54] LABS: LEUKOCYTE ESTERASE ,URINE TRACE (NEGATIVE); NITRITE,URINE NEGATIVE (NEGATIVE); PROTEIN,URINE DIPSTICK NEGATIVE (NEGATIVE)
[2018-02-23 13:55] LABS: KETONES,URINE NEGATIVE (NEGATIVE); URINE UROBILINOGEN 0.2 mg/dL (0.2 - 1)
[2018-02-23 13:56] LABS: BILIRUBIN,URINE NEGATIVE (NEGATIVE)
[2018-02-23] MEDS ORDERED: HYDRALAZINE HCL 20 MG/ML VIAL IV ONE ×2 (14:00→16:45)
[2018-02-23 14:01] LABS: ALANINE AMINOTRANSFERASE 19 IU/L (0-55); ALBUMIN 4.5 g/dL (3.5-5.0); ALBUMIN/GLOBULIN RATIO 1.6 (0.8-2.0); ALKALINE PHOSPHATASE 88 IU/L (40-150); ANION GAP 14.6 mmol/L (8-16); BLOOD UREA NITROGEN 13 mg/dL (7-26); BUN/CREATININE RATIO 17 (6-25); CALCIUM 9.9 mg/dL (8.4-10.2); CARBON DIOXIDE 27 mmol/L (22-29); CHLORIDE 94 mmol/L (98-107); CREATINE KINASE 130 IU/L (29-168); CREATININE, SERUM 0.76 mg/dL (0.57-1.11); EST GLOMERULAR FILTRATION RATE > 60 ML/MIN (60-); GLUCOSE 110 mg/dL (74-118); LIPASE 41 U/L (8-78); POTASSIUM 3.6 mmol/L (3.5-5.1); SODIUM 132 mmol/L (136-145)
--- NOTE | 2018-02-23 14:10 | Diagnostic Imaging Report ---
EXAMINATION: CHEST SINGLE (PORTABLE) COMPARISON: CTA chest 04/07/17. FINDINGS: TUBES and LINES: None. LUNGS: Lungs are well inflated. Lungs are clear. There is no evidence of pneumonia or pulmonary edema. PLEURA: No pleural effusion or pneumothorax. HEART AND MEDIASTINUM: The cardiomediastinal silhouette is unremarkable. BONES AND SOFT TISSUES: No acute osseous lesion. Soft tissues are unremarkable. Status post median sternotomy. UPPER ABDOMEN: No free air under the diaphragm. IMPRESSION: No acute radiographic abnormality. Signed by: Dr. Jd Reis MD on 02/23/2018 2:06 PM
[2018-02-23 14:15] LABS: BACTERIA,URINE FEW /HPF; EPITHELIAL CELLS,URINE FEW /LPF
[2018-02-23 14:20] LABS: THYROID STIMULATING HORMONE 1.687 uIU/mL (0.350-4.940)
[2018-02-23] MEDS ORDERED: SODIUM CHLORIDE 0.9% 100 ML 100 ML ONE (16:39)
[2018-02-23] MEDS ORDERED: IOPAMIDOL 370 MG/ML 200 ML INFUS..BTL INJ ONE (16:39)
--- NOTE | 2018-02-23 16:45 | Diagnostic Imaging Report ---
EXAM: CTA OF THE CHEST INDICATION: ^r/o pe ^[id number] ^1600 COMPARISON: Chest radiograph 02/23/2018 and CTA chest 12 08/06/2016 TECHNIQUE: Multi-detector CT technology was employed. CTA Gated axial imaging of the chest was performed after the administration of IV contrast. IV CONTRAST: 100 mL of Isovue-370 ORAL CONTRAST: None COMPLICATIONS: None RADIATION DOSE: Total DLP: 379.4 mGy*cm Estimated effective dose: (DLP x 0.015 x size factor) mSv CTDIvol has been reviewed. It is below the limits set by the Radiation Protocol Committee (RPC). For optimization of anatomic evaluation, multiplanar reconstruction, maximum intensity projections, and advanced 3-D off-line postprocessing were performed on a dedicated stand-alone workstation under the direct supervision of the interpreting physician. FINDINGS: Potential study limitations: None. LINES/ TUBES: None. VASCULAR WITH ADVANCED 3-D OFF-LINE POSTPROCESSING: PULMONARY ARTERIES: No filling defects are identified in the main, right or left pulmonary arteries to their segmental and subsegmental levels, to suggest pulmonary embolism. The main pulmonary artery is normal in size. THORACIC AORTA: Aortic valve morphology is trileaflet and contains no calcifications. 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 Status post replacement of the ascending aorta with surgical graft. The graft appears intact. The remaining thoracic aorta is normal in course, caliber, and contour. There is no acute aortic pathology, such as dissection, intramural hematoma, or contained rupture. Aortic plaques: None. The arch vessel branching pattern is conventional. All of the arch branch vessels appear widely patent in their proximal portions. Magnetic Resonance Imaging Director dimensions of the thoracic aorta are as follows: 1.7 x 2.6 cm at the aortic annulus 4.3 x 3.9 cm at the sinuses of Valsalva (the sinotubular junction is preserved) 3.2 cm at the mid ascending aorta 3.2 cm at the distal ascending aorta 2.7 cm at the mid transverse arch 2.6 cm at the proximal descending thoracic aorta 2.3 cm at the diaphragmatic hiatus. LUNGS AND AIRWAYS: Lungs are clear. Airways are patent. PLEURA: The pleural spaces are clear.. HEART AND MEDIASTINUM: The thyroid gland is normal. Few nonspecific subcentimeter mediastinal lymph nodes. The main pulmonary artery is normal in size. The cardiac chambers demonstrate normal atrioventricular and ventriculoarterial concordance, and systemic and pulmonary venous return. The left region is mildly prominent. The remaining heart appear within normal limits. The coronary arteries have normal origins and courses. There are no distinct coronary calcifications identified, though this study was not optimized for coronary artery evaluation. There is no pericardial effusion. LIMITED ABDOMEN: Mild thickening of the left adrenal gland without discrete nodules. BONES: Median sternotomy with intact wires. Posttraumatic deformity of the posterior left 10th and 11th ribs, unchanged. IMPRESSION: 1. No pulmonary embolism. 2. Ectasia of the aortic root at the sinus of Valsalva (4.3 x 3.9 cm), unchanged. 3. Stable replacement of the ascending aorta with intact surgical graft. No acute thoracic aorta pathology. 4. Clear lungs. Signed by: Dr. Latesha Pak M.D. on 02/23/2018 4:42 PM
[2018-02-23 18:08] LABS: CREATINE KINASE 120 IU/L (29-168)
[2018-02-23] MEDS ORDERED: LORAZEPAM INJ 2 MG/ML VIAL IV ONE (18:45)
[2018-02-23] MEDS ORDERED: KETOROLAC TROMETHAMINE 30 MG/ML VIAL IV ONE (18:45)
== END 2018-02-23 19:09 | disposition home or self-care (01) ==
LOC: ER 12:56
DX: R07.89 Other chest pain (principal); R11.0 Nausea; I10 Essential (primary) hypertension; J44.9 Chronic obstructive pulmonary disease, unspecified; F41.9 Anxiety disorder, unspecified; G62.9 Polyneuropathy, unspecified
CPT/HCPCS: 36415; 71045; 71275; 80053; 81001; 82550; 82553; 83690; 84443; 84484; 85025; 85379; 85610; 85730; 87086; 93005; 99284; J0360; J1885; J2060; Q9967